=== PATIENT | female | born 1975 | race Caucasian/White ===

== ENCOUNTER 2021-09-30 15:40 | Outpatient (REF) | payer MEDICAID, SELFPAY ==
--- NOTE | 2021-09-30 16:03 | MHC.AU.ANR ---
Adult Audiological Evaluation Date of Visit: 09/30/21 Reason for Appointment: Audiological evaluation due to concern for decreased hearing. Ms. Ledezma reports having decreased hearing in her left ear since she had COVID-19 approximately one and a half months ago. She notes that she hears a lot of popping and crackling sounds in the left ear, and feels that is is blocked/full. She denies any concerns for the right ear. Does patient feel they have a hearing loss?: Yes If Yes, Which Ear?: Left Ear When Was Hearing Difficulty First Noticed?: 1 1/2 months ago, after having COVID-19 Has hearing been tested previously?: No Hearing Handicap Inventory: HHIE SCORE: 32 Based on HHIE score, patient has: Severe perceived hearing handicap Ear History: Ear Infections in Childhood: Both Ears Previous Ear Surgery: PE tubes in childhood Blocked/Full Sensation in Ear(s): Left Ear Medical History: Medical History: Unremarkable Allergies: Penicillin Medication List: bupropion HCl, nicotine gum, triamcinolone acetonide cream, valacyclovir, Otoscopy: Right Ear: Unremarkable Left Ear: Unremarkable Tympanometry: Tympanometry performed due to: Patient reports clicking/popping sensations in ears Right Ear: Normal Middle Ear System (Type A) Left Ear: Normal Middle Ear System (Type A) Hearing Evaluation: Transducer(s) Used: Insert Earphones, Bone Conduction Method: Conventional Audiometry Stimuli Used: Pure Tones Right Ear: Description of Hearing: Normal hearing from 250-4000 Hz, sloping to a mild hearing loss at 8000 Hz. Left Ear: Description of Hearing: Normal hearing from 250-4000 Hz, sloping to a mild hearing loss at 8000 Hz. Speech Recognition Threshold (SRT): Method Used: Monitored Live Voice Stimuli Used: Spondee Words Right Ear: 10 dBHL Left Ear: 15 dBHL Word Discrimination: Method: Recorded Lists Word Lists Used: NU-6 Right Ear: 100% at 50 dBHL Left Ear: 92% at 55 dBHL QuickSIN: 6 dB SNR loss when presented binaurally at 55 dBHL, indicating mild [id number] understanding difficulties. Interpretation of Results: Today's test results indicate normal hearing with a mild hearing loss at 8000 Hz bilaterally. Testing does not indicate any middle-ear dysfunction at this time that would explain her feelings of aural fullness or popping/crackling sounds. Advised that these symptoms may be related to sinus congestion/inflammation that may not have completely subsided yet since she had COVID-19. Recommendations: No further audiological action is indicated at this time. Audiological re-evaluation if changes are noted. Recommend use of nasal spray to help reduce sinus congestion/inflammation. If symptoms persist, may benefit from seeing ENT. Diagnosis: Primary Diagnosis: H90.3 Bilateral Sensorineural Hearing Loss Services Performed: Services Performed: Comprehensive Audiological Evaluation (CPT 67496) Tympanometry (CPT 97910) Unlisted Otorhinolaryngological Service or Procedure (CPT 02582) Signature: Provider: Hallie Jeffers, CCC-A
== END 2021-09-30 15:41 | disposition home or self-care (01) ==
LOC: HO.SH 15:40
PROVIDERS: Visit Provider Family Medicine
DX: Z01.118 Encounter for examination of ears and hearing with other abnormal findings (principal); H90.3 Sensorineural hearing loss, bilateral
CPT/HCPCS: 92557; 92567; 92700